=== PATIENT | male | born 1995 | race Two or more races ===

== ENCOUNTER 2023-08-09 22:54 | Inpatient (IN) | payer OTHER ==
[2023-08-09 23:36] LABS: BASOPHILS ABSOLUTE AUTO 0.1 K/mm3 (0.0-0.2); BASOPHILS PERCENT AUTO 0.5 % (0.0-1.0); EOSINOPHILS PERCENT AUTO 0.1 % (0.0-6.0); HEMATOCRIT 44.6 % (42.0-52.0); HEMOGLOBIN 15.7 gm/dl (14.0-18.0); IMMATURE GRAN ABSOLUTE AUTO 0.08 K/mm3 (0.00-0.05); IMMATURE GRAN PERCENT AUTO 0.7 % (0.0-0.4); LYMPHOCYTES ABSOLUTE AUTO 2.1 K/mm3 (1.0-4.8); LYMPHOCYTES PERCENT AUTO 17.2 % (24.0-44.0); MEAN CORPUSCULAR HGB CONC 35.2 g/dl (32.0-36.0); MEAN CORPUSCULAR VOLUME 96.5 fl (83.0-99.0); MEAN PLATELET VOLUME 12.2 fl (9.4-12.4); MONOCYTES ABSOLUTE AUTO 0.8 K/mm3 (0.0-0.8); MONOCYTES PERCENT AUTO 6.8 % (0.0-8.0); NEUTROPHILS ABSOLUTE AUTO 9.1 K/mm3 (1.8-7.7); NEUTROPHILS PERCENT AUTO 74.7 % (41.0-71.0); PLATELET COUNT,PLT 42 K/mm3 (150-400); RED BLOOD CELL COUNT 4.62 M/mm3 (4.52-5.90); WHITE BLOOD CELL COUNT,WBC 12.12 K/mm3 (3.9-11.3)
[2023-08-09] MEDS: Pantoprazole 40 MG Vial IVPUSH ONE (23:38)
[2023-08-09] MEDS: cefTRIAXone 1 GM in Sodium Chloride 0.9% 100 ML IV ONE (23:40)
[2023-08-09] MEDS: Sodium Chloride 0.9% 1,000 ML IV ONE (23:45)
[2023-08-09 23:48] LABS: INR 2.12; PROTHROMBIN TIME 21.5 SECONDS (9.7-12.0)
[2023-08-09] MEDS: Ondansetron 4 MG/2 ML SDV IVPUSH ONE (23:52)
[2023-08-09 23:53] LABS: A/G RATIO 0.4 (1-2); BILIRUBIN TOTAL 9.9 mg/dL (0.2-1.0); BUN/CREATININE RATIO 1.8 (14-18); CALCIUM 7.4 mg/dL (8.5-10.1); EST CRCL DRUG DOSING (CG) 107.44 mL/min; ETHANOL BLOOD MEDICAL 0.45 gm% (0.00)
[2023-08-10 00:03] LABS: CREATININE 1.1 mg/dL (0.7-1.3)
[2023-08-10 00:04] LABS: PROTEIN TOTAL,TP 7.4 g/dl (6.4-8.2)
[2023-08-10 00:17] LABS: SLIDE REVIEW ABNORMAL SMEAR
[2023-08-10] MEDS ORDERED: LORazepam 2 MG/ML SDV IVPUSH ONE (00:19)
[2023-08-10] MEDS: LORazepam 2 MG/ML SDV IVPUSH ONE (00:29)
[2023-08-10] MEDS ORDERED: Sodium Chloride 0.9% 100 ML IV SCH ×2 (00:45→01:15)
[2023-08-10] MEDS: Sodium Chloride 0.9% 10 ML Syringe FLUSH ONE (01:15)
[2023-08-10] MEDS: Iopamidol 755 Mg/ML 100 ML Bottle IVPUSH ONE ×2 (01:15→11:22)
[2023-08-10] MEDS: LORazepam 2 MG/ML SDV IVPUSH PRN (01:20)
[2023-08-10] MEDS ORDERED: Magnesium Sulfate (4.06 MEQ/ML) 5 GM/10 ML SDV IV ONE ×2 (02:01→12:02)
[2023-08-10] MEDS: Magnesium Sulfate/Water 2 GM in Premix Bag 1 BAG IV ONE ×2 (02:11→12:37)
[2023-08-10] MEDS: Sodium Chloride 0.9% 1,000 ML IV ONE (02:11)
[2023-08-10] MEDS: Potassium Chloride 10 MEQ in Premix Bag 1 BAG IV SCH (02:16)
[2023-08-10] MEDS: Sodium Chloride 0.9% 500 ML IV SCH (03:39)
[2023-08-10] MEDS: Sodium Chloride 0.9% 1,000 ML IV SCH (03:55)
[2023-08-10 04:16] LABS: HEMATOCRIT 40.4 % (42.0-52.0)
[2023-08-10] MEDS ORDERED: Ondansetron 4 MG Tab.DIS PO PRN (07:12)
[2023-08-10] MEDS ORDERED: Polyethylene Glycol 3350 Powder 17 GM Packet PO PRN (07:12)
[2023-08-10] MEDS ORDERED: Ondansetron 4 MG/2 ML SDV IV PRN (07:12)
[2023-08-10] MEDS ORDERED: LORazepam 2 MG/ML SDV IV SCH (07:15)
[2023-08-10] MEDS: Metoprolol Tartrate 25 MG Tab PO PRN (08:10)
[2023-08-10] MEDS: Pantoprazole 40 MG Vial IV SCH (10:07)
[2023-08-10] MEDS: Lactated Ringers 1,000 ML IV SCH (10:18)
[2023-08-10] MEDS: Folic Acid 1 MG Tab PO SCH (11:22)
[2023-08-10] MEDS: Thiamine 100 MG Tab PO SCH (11:23)
[2023-08-10] MEDS: LORazepam 1 MG Tab PO SCH (21:05)
[2023-08-11 05:32] LABS: BASOPHILS PERCENT AUTO 0.3 % (0.0-1.0); EOSINOPHILS PERCENT AUTO 0.2 % (0.0-6.0); HEMATOCRIT 40.4 % (42.0-52.0); HEMOGLOBIN 13.9 gm/dl (14.0-18.0); IMMATURE GRAN ABSOLUTE AUTO 0.06 K/mm3 (0.00-0.05); IMMATURE GRAN PERCENT AUTO 0.5 % (0.0-0.4); LYMPHOCYTES ABSOLUTE AUTO 1.6 K/mm3 (1.0-4.8); LYMPHOCYTES PERCENT AUTO 13.7 % (24.0-44.0); MEAN CORPUSCULAR HEMOGLOBIN 34.3 pg (28.0-32.0); MEAN CORPUSCULAR HGB CONC 34.4 g/dl (32.0-36.0); MEAN CORPUSCULAR VOLUME 99.8 fl (83.0-99.0); MEAN PLATELET VOLUME 12.6 fl (9.4-12.4); MONOCYTES ABSOLUTE AUTO 0.7 K/mm3 (0.0-0.8); MONOCYTES PERCENT AUTO 5.8 % (0.0-8.0); NEUTROPHILS ABSOLUTE AUTO 9.5 K/mm3 (1.8-7.7); NEUTROPHILS PERCENT AUTO 79.5 % (41.0-71.0); PLATELET COUNT,PLT 40 K/mm3 (150-400); RED BLOOD CELL COUNT 4.05 M/mm3 (4.52-5.90)
[2023-08-11 05:55] LABS: A/G RATIO 0.4 (1-2); ALBUMIN 1.8 g/dl (3.4-5.0); ANION GAP 12.9 (5-15); BILIRUBIN TOTAL 11.1 mg/dL (0.2-1.0); CALCIUM 7.9 mg/dL (8.5-10.1); EST CRCL DRUG DOSING (CG) 118.18 mL/min
[2023-08-11 05:58] LABS: POTASSIUM,K 3.9 mEq/L (3.5-5.1); PROTEIN TOTAL,TP 6.9 g/dl (6.4-8.2)
[2023-08-11 05:59] LABS: SLIDE REVIEW ABNORMAL SMEAR
[2023-08-11] MEDS: Ibuprofen 400 MG Tab PO PRN (16:52)
[2023-08-12 05:33] LABS: BASOPHILS PERCENT AUTO 0.3 % (0.0-1.0); EOSINOPHILS ABSOLUTE AUTO 0.1 K/mm3 (0.0-0.4); EOSINOPHILS PERCENT AUTO 0.6 % (0.0-6.0); HEMATOCRIT 38.7 % (42.0-52.0); HEMOGLOBIN 12.9 gm/dl (14.0-18.0); IMMATURE GRAN ABSOLUTE AUTO 0.07 K/mm3 (0.00-0.05); IMMATURE GRAN PERCENT AUTO 0.7 % (0.0-0.4); LYMPHOCYTES ABSOLUTE AUTO 1.3 K/mm3 (1.0-4.8); LYMPHOCYTES PERCENT AUTO 12.4 % (24.0-44.0); MEAN CORPUSCULAR HEMOGLOBIN 33.6 pg (28.0-32.0); MEAN CORPUSCULAR HGB CONC 33.3 g/dl (32.0-36.0); MEAN CORPUSCULAR VOLUME 100.8 fl (83.0-99.0); MEAN PLATELET VOLUME 13.4 fl (9.4-12.4); MONOCYTES ABSOLUTE AUTO 0.6 K/mm3 (0.0-0.8); NEUTROPHILS ABSOLUTE AUTO 8.1 K/mm3 (1.8-7.7); PLATELET COUNT,PLT 56 K/mm3 (150-400); RED BLOOD CELL COUNT 3.84 M/mm3 (4.52-5.90); WHITE BLOOD CELL COUNT,WBC 10.13 K/mm3 (3.9-11.3)
[2023-08-12 05:52] LABS: ANION GAP 11.8 (5-15); BUN/CREATININE RATIO 6.2 (14-18); EST CRCL DRUG DOSING (CG) 90.91 mL/min
[2023-08-12 05:57] LABS: CREATININE 1.3 mg/dL (0.7-1.3); POTASSIUM,K 3.8 mEq/L (3.5-5.1)
[2023-08-12 06:20] LABS: SLIDE REVIEW ABNORMAL SMEAR
[2023-08-12 09:31] LABS: MAGNESIUM 1.6 mg/dL (1.8-2.4); PHOSPHORUS 1.2 mg/dL (2.6-4.7)
[2023-08-12] MEDS: Dextrose 5%-0.9% NaCl with KCl 1,000 ML IV SCH ×2 (10:23→18:56)
[2023-08-12] MEDS: Magnesium Sulfate/Water 2 GM in Premix Bag 1 BAG IV ONE (10:53)
[2023-08-12] MEDS: Sodium Phosphate 30 MMOLE in Sodium Chloride 0.9% 250 ML IV ONE (11:13)
[2023-08-13 05:03] LABS: BASOPHILS PERCENT AUTO 0.4 % (0.0-1.0); EOSINOPHILS ABSOLUTE AUTO 0.1 K/mm3 (0.0-0.4); EOSINOPHILS PERCENT AUTO 1.4 % (0.0-6.0); HEMATOCRIT 37.9 % (42.0-52.0); HEMOGLOBIN 12.6 gm/dl (14.0-18.0); IMMATURE GRAN ABSOLUTE AUTO 0.04 K/mm3 (0.00-0.05); IMMATURE GRAN PERCENT AUTO 0.4 % (0.0-0.4); LYMPHOCYTES ABSOLUTE AUTO 1.2 K/mm3 (1.0-4.8); LYMPHOCYTES PERCENT AUTO 12.9 % (24.0-44.0); MEAN CORPUSCULAR HEMOGLOBIN 34.6 pg (28.0-32.0); MEAN CORPUSCULAR HGB CONC 33.2 g/dl (32.0-36.0); MEAN CORPUSCULAR VOLUME 104.1 fl (83.0-99.0); MEAN PLATELET VOLUME 11.8 fl (9.4-12.4); MONOCYTES ABSOLUTE AUTO 0.8 K/mm3 (0.0-0.8); MONOCYTES PERCENT AUTO 8.4 % (0.0-8.0); NEUTROPHILS PERCENT AUTO 76.5 % (41.0-71.0); PLATELET COUNT,PLT 81 K/mm3 (150-400); RED BLOOD CELL COUNT 3.64 M/mm3 (4.52-5.90)
[2023-08-13 05:18] LABS: INR 2.53; PROTHROMBIN TIME 25.3 SECONDS (9.7-12.0)
[2023-08-13 05:34] LABS: A/G RATIO 0.4 (1-2); ALBUMIN 1.7 g/dl (3.4-5.0); ANION GAP 11.4 (5-15); CALCIUM 7.7 mg/dL (8.5-10.1); EST CRCL DRUG DOSING (CG) 118.18 mL/min; MAGNESIUM 1.8 mg/dL (1.8-2.4); PHOSPHORUS 1.1 mg/dL (2.6-4.7)
[2023-08-13 06:28] LABS: SLIDE REVIEW ABNORMAL SMEAR
[2023-08-13 06:30] LABS: POTASSIUM,K 3.4 mEq/L (3.5-5.1)
[2023-08-13 06:31] LABS: PROTEIN TOTAL,TP 6.1 g/dl (6.4-8.2)
[2023-08-14 04:47] LABS: BASOPHILS PERCENT AUTO 0.2 % (0.0-1.0); EOSINOPHILS ABSOLUTE AUTO 0.1 K/mm3 (0.0-0.4); EOSINOPHILS PERCENT AUTO 1.3 % (0.0-6.0); HEMATOCRIT 38.6 % (42.0-52.0); HEMOGLOBIN 12.5 gm/dl (14.0-18.0); IMMATURE GRAN ABSOLUTE AUTO 0.04 K/mm3 (0.00-0.05); IMMATURE GRAN PERCENT AUTO 0.4 % (0.0-0.4); LYMPHOCYTES ABSOLUTE AUTO 1.2 K/mm3 (1.0-4.8); LYMPHOCYTES PERCENT AUTO 12.4 % (24.0-44.0); MEAN CORPUSCULAR HEMOGLOBIN 34.4 pg (28.0-32.0); MEAN CORPUSCULAR HGB CONC 32.4 g/dl (32.0-36.0); MEAN CORPUSCULAR VOLUME 106.3 fl (83.0-99.0); MEAN PLATELET VOLUME 11.1 fl (9.4-12.4); MONOCYTES ABSOLUTE AUTO 1.1 K/mm3 (0.0-0.8); NEUTROPHILS ABSOLUTE AUTO 6.9 K/mm3 (1.8-7.7); NEUTROPHILS PERCENT AUTO 73.7 % (41.0-71.0); PLATELET COUNT,PLT 111 K/mm3 (150-400); RED BLOOD CELL COUNT 3.63 M/mm3 (4.52-5.90); WHITE BLOOD CELL COUNT,WBC 9.39 K/mm3 (3.9-11.3)
[2023-08-14 05:18] LABS: A/G RATIO 0.4 (1-2); ALBUMIN 1.7 g/dl (3.4-5.0); ANION GAP 11.6 (5-15); BILIRUBIN TOTAL 15.3 mg/dL (0.2-1.0); BUN/CREATININE RATIO 5.6 (14-18); CALCIUM 7.7 mg/dL (8.5-10.1); EST CRCL DRUG DOSING (CG) 131.31 mL/min; MAGNESIUM 1.6 mg/dL (1.8-2.4)
[2023-08-14 05:20] LABS: CREATININE 0.9 mg/dL (0.7-1.3); POTASSIUM,K 3.6 mEq/L (3.5-5.1); PROTEIN TOTAL,TP 6.1 g/dl (6.4-8.2)
[2023-08-14] MEDS: Magnesium Oxide 400 MG Tab PO ONE (07:59)
[2023-08-14] MEDS: Phosphorus #1 250 MG Tab PO ONE (07:59)
== END 2023-08-14 11:42 | disposition home or self-care (01) | DRG 896 ==
LOC: JD.ED 22:54 → JD.MS 08-10 07:12
PROVIDERS: ADMIT Hospitalist; ATTEND Physician Assistant
DX: F10.230 Alcohol dependence with withdrawal, uncomplicated (principal); K85.20 Alcohol induced acute pancreatitis without necrosis or infection; Z68.41 Body mass index [BMI] 40.0-44.9, adult; K92.0 Hematemesis; K70.10 Alcoholic hepatitis without ascites; E87.6 Hypokalemia; E83.42 Hypomagnesemia; J44.9 Chronic obstructive pulmonary disease, unspecified; K59.09 Other constipation; G47.30 Sleep apnea, unspecified; I10 Essential (primary) hypertension; F17.210 Nicotine dependence, cigarettes, uncomplicated; F10.229 Alcohol dependence with intoxication, unspecified; D69.59 Other secondary thrombocytopenia; E86.0 Dehydration; E11.649 Type 2 diabetes mellitus with hypoglycemia without coma; E80.6 Other disorders of bilirubin metabolism; E88.09 Other disorders of plasma-protein metabolism, not elsewhere classified; E83.39 Other disorders of phosphorus metabolism; E66.01 Morbid (severe) obesity due to excess calories; E11.69 Type 2 diabetes mellitus with other specified complication; R09.02 Hypoxemia; D72.829 Elevated white blood cell count, unspecified; Y90.8 Blood alcohol level of 240 mg/100 ml or more
CPT/HCPCS: 36415; 71275; 71275-26; 74177; 74177-26; 80048; 80053; 80307; 82947; 83690; 83735; 84100; 85014; 85018; 85025; 85610; 85730; 93005; 93010; 94667; 94668; 94761; 96361; 96365; 96366; 96367; 96368; 96375; 96376; 99223; 99232; 99233; 99239; 99284; 99285-25; A9270-GY; C9113; J0696; J2060; J2405; J3475; J3480; J3490; J7030; J7040; J7050; J7120; Q9967

== ENCOUNTER 2023-08-29 15:01 | Emergency (ER) | payer OTHER ==
[2023-08-29] MEDS ORDERED: Propofol 200 MG/20 ML SDV ONE (15:10)
[2023-08-29] MEDS ORDERED: Midazolam 1 MG/ML 5 ML SDV ONE (15:10)
[2023-08-29] MEDS ORDERED: Succinylcholine 200 MG/10 ML MDV ONE (15:10)
[2023-08-29] MEDS ORDERED: Ketamine 500 MG in Sodium Chloride 0.9% 490 ML IV SCH (15:30)
[2023-08-29] MEDS: propofoL 100 ML IV SCH (15:36)
[2023-08-29 15:56] LABS: BASOPHILS ABSOLUTE AUTO 0.1 K/mm3 (0.0-0.2); BASOPHILS PERCENT AUTO 0.5 % (0.0-1.0); EOSINOPHILS PERCENT AUTO 0.1 % (0.0-6.0); HEMATOCRIT 38.6 % (42.0-52.0); HEMOGLOBIN 12.6 gm/dl (14.0-18.0); IMMATURE GRAN PERCENT AUTO 3.5 % (0.0-0.4); LYMPHOCYTES ABSOLUTE AUTO 0.8 K/mm3 (1.0-4.8); LYMPHOCYTES PERCENT AUTO 5.6 % (24.0-44.0); MEAN CORPUSCULAR HEMOGLOBIN 33.1 pg (28.0-32.0); MEAN CORPUSCULAR HGB CONC 32.6 g/dl (32.0-36.0); MEAN CORPUSCULAR VOLUME 101.3 fl (83.0-99.0); MEAN PLATELET VOLUME 10.3 fl (9.4-12.4); MONOCYTES ABSOLUTE AUTO 1.4 K/mm3 (0.0-0.8); NEUTROPHILS ABSOLUTE AUTO 11.3 K/mm3 (1.8-7.7); NEUTROPHILS PERCENT AUTO 80.3 % (41.0-71.0); NRBC ABSOLUTE 0.02 (0.00-0.02); NRBC PERCENT 0.1 % (0.0-0.2); PLATELET COUNT,PLT 298 K/mm3 (150-400); RED BLOOD CELL COUNT 3.81 M/mm3 (4.52-5.90); WHITE BLOOD CELL COUNT,WBC 14.12 K/mm3 (3.9-11.3)
[2023-08-29] MEDS ORDERED: Sodium Chloride 0.9% 1,000 ML IV SCH (16:00)
[2023-08-29 16:08] LABS: APPEARANCE,URINE CLOUDY (Clear); BILIRUBIN,URINE 3+ (Negative); COLOR,URINE BROWN (Yellow); GLUCOSE,URINE TRACE (Negative); KETONES,URINE 1+ (Negative); LEUKOCYTE ESTERASE,URINE 3+ (Negative); NITRITE,URINE NEGATIVE (Negative); OCCULT BLOOD,URINE TRACE-LYSED (Negative); PROTEIN,URINE 3+ (Negative)
[2023-08-29 16:18] LABS: BARBITURATE SCREEN,URINE NEGATIVE (CUTOFF=200); BENZODIAZEPINES SCREEN,URINE NEGATIVE (CUTOFF=150); BUPRENORPHINE SCREEN,URINE NEGATIVE (CUTOFF=10); METHADONE SCREEN, URINE NEGATIVE (CUT0FF=200); METHAMPHETAMINES SCREEN, URINE NEGATIVE (CUTOFF=500); OXYCODONE SCREEN,URINE NEGATIVE (CUT0FF=100); THC SCREEN,URINE 20 NG/ML NEGATIVE (CUTOFF=50)
[2023-08-29 16:19] LABS: A/G RATIO 0.4 (1-2); ALBUMIN 1.6 g/dl (3.4-5.0); ALKALINE PHOSPHATASE 151 U/L (46-116); ANION GAP 18.8 (5-15); BLOOD UREA NITROGEN,BUN 8 mg/dL (7-18); BUN/CREATININE RATIO 5.3 (14-18); CARBON DIOXIDE,CO2 22 mEq/L (21-32); CHLORIDE,CL 101 mEq/L (98-107); ESTIMATED GFR 65 mL/min (>60); MAGNESIUM 1.8 mg/dL (1.8-2.4); SODIUM,NA 139 mEq/L (136-145)
[2023-08-29 16:24] LABS: POTASSIUM,K 2.8 mEq/L (3.5-5.1); PROTEIN TOTAL,TP 5.9 g/dl (6.4-8.2); TROPONIN I HIGH SENSITIVITY 18 pg/mL (<=76)
[2023-08-29 16:25] LABS: ALANINE AMINOTRANSFERASE,ALT 109 U/L (16-63); ASPARTATE AMNIOTRANSFERASE,AST 353 U/L (15-37); BILIRUBIN TOTAL 27.4 mg/dL (0.2-1.0); CREATININE 1.5 mg/dL (0.7-1.3); GLUCOSE RANDOM 129 mg/dL (70-99)
[2023-08-29] MEDS: Potassium Chloride 10 MEQ in Premix Bag 1 BAG IV ONE (16:40)
[2023-08-29] MEDS: NS with KCl 40mEq 1,000 ML IV SCH (16:40)
[2023-08-29 16:45] LABS: AMPHETAMINES SCREEN, URINE NEGATIVE (CUTOFF=500)
[2023-08-29 16:55] LABS: SQUAMOUS EPITHELIAL CELLS,UR 0-5 /hpf (0-5)
[2023-08-29 16:56] LABS: AMORPHOUS SEDIMENT,URINE FEW /hpf (NOT SEEN); BACTERIA,URINE MODERATE /hpf (FEW); COARSE GRANULAR CASTS,URINE 0-5 /hpf (0-5); MUCUS,URINE FEW /hpf (FEW)
[2023-08-29 17:18] LABS: BICARBONATE,ARTERIAL 23.6 meq/L (22.0-26.0); O2 SATURATION ARTERIAL 93.8 % (96.0-97.0); PCO2 ARTERIAL 41.9 mmHg (35.0-45.0)
[2023-08-29] MEDS: propofoL 100 ML ONE (17:38)
== END 2023-08-29 16:55 ==
LOC: JD.ED 15:01
DX: I46.9 Cardiac arrest, cause unspecified (principal); R56.9 Unspecified convulsions; K70.9 Alcoholic liver disease, unspecified; E66.01 Morbid (severe) obesity due to excess calories; I10 Essential (primary) hypertension; J44.9 Chronic obstructive pulmonary disease, unspecified; E11.40 Type 2 diabetes mellitus with diabetic neuropathy, unspecified; E80.6 Other disorders of bilirubin metabolism; Z79.899 Other long term (current) drug therapy; Z68.41 Body mass index [BMI] 40.0-44.9, adult; K85.20 Alcohol induced acute pancreatitis without necrosis or infection
CPT/HCPCS: 31500; 36415; 36600; 51702; 71045; 71045-26; 80053; 80306; 80307; 81001; 82803; 83735; 84484; 85025; 93005; 93010; 96374; 99285; 99291-25; J0330; J2250; J2704; J3480